=== PATIENT | female | born 1990 | race Caucasian/White ===

== ENCOUNTER 2020-07-23 18:38 | Inpatient (IN) | payer BC ==
[~2020-07-23] VITALS: Ht 175.3 cm; Wt 79.3 kg
[2020-07-23] MEDS: BETAMETHASONE 6 MG/ML, 5ML IM SCH (18:00)
[2020-07-23] MEDS ORDERED: MAGNESIUM SULF. PMX 20GM/500ML 500 ML IV ONE (19:13)
[2020-07-23] MEDS: MAGNESIUM SULF. PMX 20GM/500ML 500 ML IV SCH (19:20)
[2020-07-23] MEDS ORDERED: PLEASE ENTER HEIGHT AND WEIGHT MC SCH (19:30)
[2020-07-23] MEDS ORDERED: LACTATED RINGERS 1,000 ML IV PRN (19:30)
[2020-07-23] MEDS ORDERED: PLEASE ENTER ALLERGIES MC SCH (19:30)
[2020-07-23] MEDS ORDERED: MAGNESIUM SULFATE PMX 2GM/50ML 50 ML IVPB ONE (19:30)
[2020-07-23] MEDS ORDERED: SODIUM CHLORIDE 0.45% 1,000 ML IV PRN (19:30)
[2020-07-23 19:41] LABS: BASOPHILS % (AUTO) 0 % (0-1); EOSINOPHILS % (AUTO) 1 % (1-7); LYMPHOCYTES % (AUTO) 10 % (22-44); MEAN CORPUSCULAR HGB CONC 33.9 g/dL (32.4-35.8); MEAN PLATELET VOLUME 9.7 fL (7.4-10.4); MONOCYTES % (AUTO) 8 % (2-9); NEUTROPHILS % (AUTO) 81 % (42-75); PLATELET COUNT 124 x10^3/uL (130-400); RED BLOOD COUNT 4.42 x10^6/uL (3.82-5.3); RED CELL DISTRIBUTION WIDTH 12.4 % (9.6-15.2)
[2020-07-23 19:43] LABS: MICROSCOPIC AUTO
[2020-07-23 19:45] LABS: MD NO
[2020-07-23 19:46] VITALS: BP 113/61
[2020-07-23 19:52] LABS: ALANINE AMINOTRANSFERASE 14 U/L (12-78); ALBUMIN 2.6 g/dL (3.4-5.0); ANION GAP 8 mmol/L (5-15); CALCIUM 8.6 mg/dL (8.5-10.1); CHLORIDE 110 mmol/L (98-107); CREATININE 0.61 mg/dL (0.55-1.02)
[2020-07-23 19:54] LABS: ALKALINE PHOSPHATASE 152 U/L (45-117); BILIRUBIN,TOTAL 0.2 mg/dL (0.2-1.0); TOTAL PROTEIN 7.2 g/dL (6.4-8.2)
[2020-07-23] MEDS ORDERED: METOCLOPRAMIDE 5 MG/ML, 2ML ONE (20:14)
[2020-07-23] MEDS ORDERED: SODIUM CITRATE/CITRIC ACID 15 ML UDC ONE (20:14)
[2020-07-23] MEDS ORDERED: INDOMETHACIN 50 MG CAPSULE ONE (20:21)
[2020-07-23] MEDS ORDERED: INDOMETHACIN 50 MG CAPSULE PO ONE (20:30)
[2020-07-23] MEDS: AZITHROMYCIN 500 MG in SODIUM CHLORIDE 0.9% 250 ML IV SCH (21:06)
[2020-07-23 22:31] LABS: FERNING TEST FERNING PRESENT (NEGATIVE)
[2020-07-24] MEDS: AMPICILLIN 2 GM in SODIUM CHLORIDE 0.9% 100 ML IV SCH ×5 (00:21→19:30)
[2020-07-24] MEDS ORDERED: MAGNESIUM SULF. PMX 20GM/500ML 500 ML IV ONE ×3 (01:24→16:57)
[2020-07-24] MEDS: MAGNESIUM SULF. PMX 20GM/500ML 500 ML IV SCH ×5 (01:28→17:02)
[2020-07-24] MEDS ORDERED: CALCIUM GLUCONATE 4.6 MEQ/10 ML IV PRN (01:30)
[2020-07-24] MEDS ORDERED: CALCIUM CARBONATE 500 MG TAB.CHEW PO PRN (01:30)
[2020-07-24] MEDS ORDERED: CALCIUM CARBONATE 500 MG TAB.CHEW ONE (01:33)
[2020-07-24] MEDS ORDERED: INDOMETHACIN 50 MG CAPSULE ONE ×3 (07:26→22:52)
[2020-07-24] MEDS: INDOMETHACIN 50 MG CAPSULE PO SCH ×3 (07:28→22:53)
[2020-07-24] MEDS ORDERED: BETAMETHASONE 6 MG/ML, 5ML IM ONE (18:58)
[2020-07-24] MEDS: BETAMETHASONE 6 MG/ML, 5ML IM SCH (19:07)
[2020-07-24] MEDS: AZITHROMYCIN 500 MG in SODIUM CHLORIDE 0.9% 250 ML IV SCH (21:53)
[2020-07-25] MEDS ORDERED: MAGNESIUM SULF. PMX 20GM/500ML 500 ML IV ONE ×2 (01:09→09:05)
[2020-07-25] MEDS: MAGNESIUM SULF. PMX 20GM/500ML 500 ML IV SCH ×5 (01:30→13:00)
[2020-07-25] MEDS: AMPICILLIN 2 GM in SODIUM CHLORIDE 0.9% 100 ML IV SCH ×4 (01:32→19:20)
[2020-07-25 07:47] VITALS: BP 103/59
[2020-07-25] MEDS ORDERED: INDOMETHACIN 50 MG CAPSULE ONE ×3 (07:53→23:35)
[2020-07-25] MEDS: INDOMETHACIN 50 MG CAPSULE PO SCH ×3 (07:56→23:37)
[2020-07-25] MEDS ORDERED: PRENATAL VIT/IRON/FA 1 EACH TABLET PO SCH (09:00)
[2020-07-25] MEDS: AZITHROMYCIN 500 MG in SODIUM CHLORIDE 0.9% 250 ML IV SCH (21:00)
[2020-07-25] MEDS: ASPIRIN 81 MG TABLET EC PO SCH (22:00)
[2020-07-25] MEDS ORDERED: AMOXICILLIN 250 MG CAPSULE ONE (23:35)
[2020-07-26] MEDS ORDERED: AMOXICILLIN 250 MG CAPSULE PO SCH
[2020-07-26] MEDS ORDERED: INDOMETHACIN 50 MG CAPSULE ONE (07:04)
[2020-07-26] MEDS: INDOMETHACIN 50 MG CAPSULE PO SCH (07:05)
[2020-07-26] MEDS ORDERED: AMOXICILLIN 250 MG CAPSULE ONE ×2 (07:36→16:17)
[2020-07-26] MEDS: AMOXICILLIN 250 MG CAPSULE PO SCH ×2 (07:48→16:19)
[2020-07-26] MEDS ORDERED: DOCUSATE 100 MG CAPSULE ONE (08:33)
[2020-07-26] MEDS: DOCUSATE 100 MG CAPSULE PO PRN (08:34)
[2020-07-26] MEDS ORDERED: NEWBORN KIT ONE (11:18)
[2020-07-26] MEDS ORDERED: FAMOTIDINE 20 MG TABLET ONE (14:33)
[2020-07-26] MEDS: FAMOTIDINE 20 MG TABLET PO SCH (14:36)
[2020-07-26] MEDS: ASPIRIN 81 MG TABLET EC PO SCH (22:00)
[2020-07-26] MEDS ORDERED: TERBUTALINE 1 MG/ML, 1ML ONE (22:19)
[2020-07-26] MEDS ORDERED: TERBUTALINE 1 MG/ML, 1ML SQ ONE (23:00)
[2020-07-26] MEDS ORDERED: CEFAZOLIN 2,000 MG in SODIUM CHLORIDE 0.9% 50 ML IV ONE (23:00)
[2020-07-27] MEDS ORDERED: AMOXICILLIN 250 MG CAPSULE ONE (00:12)
[2020-07-27] MEDS: AMOXICILLIN 250 MG CAPSULE PO SCH ×4 (00:17→23:47)
[2020-07-27] MEDS: DOCUSATE 100 MG CAPSULE PO PRN (08:31)
[2020-07-27] MEDS: FAMOTIDINE 20 MG TABLET PO SCH ×2 (08:32→15:54)
[2020-07-27 08:55] VITALS: BP 105/55
[2020-07-27 20:00] VITALS: BP 106/57
[2020-07-27] MEDS: SODIUM CHLORIDE FLUSH 3ML SYRINGE IVF SCH ×2 (21:00→21:49)
[2020-07-27] MEDS ORDERED: DIPHENHYDRAMINE 25 MG CAPSULE ONE (21:41)
[2020-07-27] MEDS: ASPIRIN 81 MG TABLET EC PO SCH (21:49)
[2020-07-28 08:00] LABS: ALBUMIN 2.2 g/dL (3.4-5.0); ANION GAP 6 mmol/L (5-15); CHLORIDE 111 mmol/L (98-107)
[2020-07-28 08:04] LABS: ALANINE AMINOTRANSFERASE 150 U/L (12-78); ALKALINE PHOSPHATASE 161 U/L (45-117); BILIRUBIN,TOTAL 0.3 mg/dL (0.2-1.0); CREATININE 0.59 mg/dL (0.55-1.02); TOTAL PROTEIN 6.2 g/dL (6.4-8.2)
[2020-07-28] MEDS: AMOXICILLIN 250 MG CAPSULE PO SCH ×2 (08:21→16:06)
[2020-07-28] MEDS ORDERED: CETIRIZINE 10 MG TABLET PO SCH (09:00)
[2020-07-28] MEDS ORDERED: FAMOTIDINE 20 MG/2 ML IVPush SCH (09:00)
[2020-07-28] MEDS ORDERED: FAMOTIDINE 20 MG TABLET HOMEMEDPO SCH (09:00)
[2020-07-28] MEDS: PRENATAL VIT/IRON/FA 1 EACH TABLET HOMEMEDPO SCH (09:33)
[2020-07-28] MEDS: SODIUM CHLORIDE FLUSH 3ML SYRINGE IVF SCH ×2 (09:40→21:00)
[2020-07-28 09:47] VITALS: BP 107/68
[2020-07-28] MEDS: DOCUSATE 100 MG CAPSULE PO PRN (12:08)
[2020-07-28 20:00] VITALS: BP 112/65
[2020-07-28] MEDS: ASPIRIN 81 MG TABLET EC HOMEMEDPO SCH (21:00)
[2020-07-28] MEDS: FAMOTIDINE 20 MG TABLET PO SCH (21:00)
[2020-07-29] MEDS ORDERED: ZOLPIDEM 5MG TABLET PO PRN (02:00)
[2020-07-29] MEDS: AMOXICILLIN 250 MG CAPSULE PO SCH ×4 (08:07→23:23)
[2020-07-29] MEDS: FAMOTIDINE 20 MG TABLET PO SCH ×2 (09:00→21:00)
[2020-07-29] MEDS: PRENATAL VIT/IRON/FA 1 EACH TABLET HOMEMEDPO SCH (09:00)
[2020-07-29] MEDS: DOCUSATE 100 MG CAPSULE PO PRN (12:00)
[2020-07-29] MEDS: SODIUM CHLORIDE FLUSH 3ML SYRINGE IVF SCH ×2 (12:00→21:33)
[2020-07-29] MEDS: ASPIRIN 81 MG TABLET EC HOMEMEDPO SCH (21:00)
[2020-07-30] MEDS: AMOXICILLIN 250 MG CAPSULE PO SCH ×3 (08:00→23:34)
[2020-07-30] MEDS: PRENATAL VIT/IRON/FA 1 EACH TABLET HOMEMEDPO SCH (09:00)
[2020-07-30] MEDS: SODIUM CHLORIDE FLUSH 3ML SYRINGE IVF SCH ×2 (09:46→20:53)
[2020-07-30] MEDS: DOCUSATE 100 MG CAPSULE PO PRN (09:46)
[2020-07-30] MEDS: FAMOTIDINE 20 MG TABLET PO SCH ×2 (09:46→20:53)
[2020-07-30] MEDS: URSODIOL 300 MG CAPSULE PO SCH ×2 (16:45→20:53)
[2020-07-30 20:24] VITALS: BP 113/63
[2020-07-30] MEDS: ASPIRIN 81 MG TABLET EC HOMEMEDPO SCH (20:53)
[2020-07-30] MEDS ORDERED: URSODIOL 300 MG CAPSULE PO SCH (21:00)
[2020-07-31 05:30] LABS: ALANINE AMINOTRANSFERASE 198 U/L (12-78); ALBUMIN 2.3 g/dL (3.4-5.0); ANION GAP 8 mmol/L (5-15); CALCIUM 9.2 mg/dL (8.5-10.1); CHLORIDE 107 mmol/L (98-107); CREATININE 0.64 mg/dL (0.55-1.02)
[2020-07-31 05:33] LABS: ALKALINE PHOSPHATASE 185 U/L (45-117); BILIRUBIN,TOTAL 0.3 mg/dL (0.2-1.0); TOTAL PROTEIN 6.8 g/dL (6.4-8.2)
[2020-07-31] MEDS: AMOXICILLIN 250 MG CAPSULE PO SCH ×2 (08:04→15:51)
[2020-07-31] MEDS: FAMOTIDINE 20 MG TABLET PO SCH ×2 (08:04→20:56)
[2020-07-31] MEDS: URSODIOL 300 MG CAPSULE PO SCH ×3 (08:50→20:50)
[2020-07-31] MEDS: SODIUM CHLORIDE FLUSH 3ML SYRINGE IVF SCH ×2 (08:50→20:51)
[2020-07-31 09:07] VITALS: BP 104/57
[2020-07-31] MEDS: ASPIRIN 81 MG TABLET EC HOMEMEDPO SCH (21:00)
[2020-07-31 22:13] VITALS: BP 113/68
[2020-08-01] MEDS: AMOXICILLIN 250 MG CAPSULE PO SCH ×4 (00:07→16:00)
[2020-08-01] MEDS: URSODIOL 300 MG CAPSULE PO SCH ×3 (05:55→21:06)
[2020-08-01] MEDS: SODIUM CHLORIDE FLUSH 3ML SYRINGE IVF SCH ×2 (05:56→21:06)
[2020-08-01] MEDS: PRENATAL VIT/IRON/FA 1 EACH TABLET HOMEMEDPO SCH (08:53)
[2020-08-01] MEDS: FAMOTIDINE 20 MG TABLET PO SCH ×2 (08:53→21:06)
[2020-08-01 19:14] LABS: BASOPHILS % (AUTO) 0 % (0-1); EOSINOPHILS % (AUTO) 1 % (1-7); LYMPHOCYTES % (AUTO) 15 % (22-44); MEAN CORPUSCULAR HEMOGLOBIN 29.5 pg (27.0-34.8); MEAN CORPUSCULAR HGB CONC 33.6 g/dL (32.4-35.8); MEAN PLATELET VOLUME 9.9 fL (7.4-10.4); MONOCYTES % (AUTO) 10 % (2-9); NEUTROPHILS % (AUTO) 74 % (42-75); PLATELET COUNT 151 x10^3/uL (130-400); RED BLOOD COUNT 4.03 x10^6/uL (3.82-5.3); RED CELL DISTRIBUTION WIDTH 12.4 % (9.6-15.2)
[2020-08-01 19:15] LABS: MD NO
[2020-08-01 20:17] VITALS: BP 114/63
[2020-08-01] MEDS: ASPIRIN 81 MG TABLET EC HOMEMEDPO SCH (21:00)
[2020-08-02] MEDS: AMOXICILLIN 250 MG CAPSULE PO SCH ×3 (00:03→16:09)
[2020-08-02] MEDS: URSODIOL 300 MG CAPSULE PO SCH ×3 (06:16→21:20)
[2020-08-02] MEDS: SODIUM CHLORIDE FLUSH 3ML SYRINGE IVF SCH ×3 (06:17→21:25)
[2020-08-02] MEDS: FAMOTIDINE 20 MG TABLET PO SCH ×2 (08:18→21:23)
[2020-08-02] MEDS: PRENATAL VIT/IRON/FA 1 EACH TABLET HOMEMEDPO SCH (09:00)
[2020-08-02] MEDS: ASPIRIN 81 MG TABLET EC HOMEMEDPO SCH (21:00)
[2020-08-02] MEDS: DOCUSATE 100 MG CAPSULE PO PRN (22:09)
[2020-08-03] MEDS ORDERED: ASPIRIN 81 MG TABLET CHEW ONE (08:56)
[2020-08-03] MEDS: PRENATAL VIT/IRON/FA 1 EACH TABLET HOMEMEDPO SCH (09:00)
[2020-08-03] MEDS: DOCUSATE 100 MG CAPSULE PO PRN (09:01)
[2020-08-03] MEDS: URSODIOL 300 MG CAPSULE PO SCH ×3 (09:02→21:33)
[2020-08-03] MEDS: FAMOTIDINE 20 MG TABLET PO SCH ×2 (09:06→21:33)
[2020-08-03 15:31] VITALS: BP 109/65
[2020-08-03 19:30] VITALS: BP 124/72
[2020-08-03] MEDS: ASPIRIN 81 MG TABLET EC HOMEMEDPO SCH (21:00)
[2020-08-03] MEDS: SODIUM CHLORIDE FLUSH 3ML SYRINGE IVF SCH (21:33)
[2020-08-04 07:33] VITALS: BP 92/54
[2020-08-04 08:23] LABS: BASOPHILS % (AUTO) 1 % (0-1); EOSINOPHILS % (AUTO) 1 % (1-7); LYMPHOCYTES % (AUTO) 15 % (22-44); MEAN CORPUSCULAR HEMOGLOBIN 29.3 pg (27.0-34.8); MEAN CORPUSCULAR HGB CONC 33.2 g/dL (32.4-35.8); MONOCYTES % (AUTO) 11 % (2-9); NEUTROPHILS % (AUTO) 73 % (42-75); PLATELET COUNT 134 x10^3/uL (130-400); RED CELL DISTRIBUTION WIDTH 12.5 % (9.6-15.2)
[2020-08-04] MEDS: FAMOTIDINE 20 MG TABLET PO SCH ×2 (08:45→21:15)
[2020-08-04] MEDS: DOCUSATE 100 MG CAPSULE PO PRN ×2 (08:45→21:15)
[2020-08-04] MEDS: SODIUM CHLORIDE FLUSH 3ML SYRINGE IVF SCH ×2 (09:00→21:15)
[2020-08-04] MEDS: PRENATAL VIT/IRON/FA 1 EACH TABLET HOMEMEDPO SCH (09:00)
[2020-08-04 09:08] LABS: MD SCAN
[2020-08-04] MEDS: URSODIOL 300 MG CAPSULE PO SCH ×3 (09:31→21:15)
[2020-08-04 20:00] VITALS: BP 110/72
[2020-08-04] MEDS: ASPIRIN 81 MG TABLET EC HOMEMEDPO SCH (21:00)
[2020-08-05] MEDS ORDERED: GLYCERIN ADULT SUPP PR PRN (07:00)
[2020-08-05] MEDS: PRENATAL VIT/IRON/FA 1 EACH TABLET HOMEMEDPO SCH (08:02)
[2020-08-05] MEDS: URSODIOL 300 MG CAPSULE PO SCH ×3 (08:02→21:45)
[2020-08-05] MEDS: SODIUM CHLORIDE FLUSH 3ML SYRINGE IVF SCH ×2 (08:02→21:00)
[2020-08-05] MEDS: FAMOTIDINE 20 MG TABLET PO SCH ×2 (08:02→21:45)
[2020-08-05] MEDS: BISACODYL 10 MG SUPP PR PRN (16:30)
[2020-08-05 19:30] VITALS: BP 127/65
[2020-08-05] MEDS: ASPIRIN 81 MG TABLET EC HOMEMEDPO SCH (21:00)
[2020-08-05] MEDS: SIMETHICONE 80 MG CHEW TAB PO PRN (21:45)
[2020-08-05] MEDS: DOCUSATE 100 MG CAPSULE PO PRN (21:45)
[2020-08-06] MEDS: FAMOTIDINE 20 MG TABLET PO SCH ×2 (08:58→20:55)
[2020-08-06] MEDS: DOCUSATE 100 MG CAPSULE PO PRN ×2 (08:58→20:55)
[2020-08-06] MEDS: URSODIOL 300 MG CAPSULE PO SCH ×3 (08:58→20:55)
[2020-08-06] MEDS: SODIUM CHLORIDE FLUSH 3ML SYRINGE IVF SCH (09:00)
[2020-08-06] MEDS: ASPIRIN 81 MG TABLET EC HOMEMEDPO SCH (21:00)
[2020-08-07 06:22] LABS: BASOPHILS % (AUTO) 1 % (0-1); EOSINOPHILS % (AUTO) 2 % (1-7); LYMPHOCYTES % (AUTO) 17 % (22-44); MEAN CORPUSCULAR HEMOGLOBIN 29.7 pg (27.0-34.8); MEAN PLATELET VOLUME 10.6 fL (7.4-10.4); MONOCYTES % (AUTO) 10 % (2-9); NEUTROPHILS % (AUTO) 71 % (42-75); PLATELET COUNT 108 x10^3/uL (130-400); RED BLOOD COUNT 3.83 x10^6/uL (3.82-5.3); RED CELL DISTRIBUTION WIDTH 12.4 % (9.6-15.2)
[2020-08-07 06:23] LABS: MD NO
[2020-08-07] MEDS: PRENATAL VIT/IRON/FA 1 EACH TABLET HOMEMEDPO SCH ×2 (09:00→09:57)
[2020-08-07] MEDS: FAMOTIDINE 20 MG TABLET PO SCH ×2 (09:00→21:00)
[2020-08-07] MEDS: URSODIOL 300 MG CAPSULE PO SCH (09:00)
[2020-08-07] MEDS ORDERED: MAGNESIUM SULF. PMX 20GM/500ML 500 ML IV ONE (09:29)
[2020-08-07] MEDS ORDERED: METOCLOPRAMIDE 5 MG/ML, 2ML ONE (09:31)
[2020-08-07] MEDS ORDERED: SODIUM CITRATE/CITRIC ACID 15 ML UDC ONE (09:32)
[2020-08-07] MEDS ORDERED: LACTATED RINGERS 1,000 ML IVBOLUS ONE (10:00)
[2020-08-07] MEDS ORDERED: AZITHROMYCIN 500 MG in SODIUM CHLORIDE 0.9% 250 ML IV ONE (10:00)
[2020-08-07] MEDS ORDERED: METOCLOPRAMIDE 5 MG/ML, 2ML IV ONE (10:00)
[2020-08-07] MEDS ORDERED: SODIUM CITRATE/CITRIC ACID 30 ML UDC PO ONE (10:00)
[2020-08-07 10:04] LABS: ALBUMIN 2.4 g/dL (3.4-5.0); ANION GAP 9 mmol/L (5-15); CALCIUM 8.9 mg/dL (8.5-10.1); CHLORIDE 110 mmol/L (98-107)
[2020-08-07 10:08] LABS: ALANINE AMINOTRANSFERASE 148 U/L (12-78); ALKALINE PHOSPHATASE 208 U/L (45-117); BILIRUBIN,TOTAL 0.3 mg/dL (0.2-1.0); CREATININE 0.57 mg/dL (0.55-1.02)
[2020-08-07] MEDS ORDERED: MAGNESIUM SULF. PMX 20GM/500ML 500 ML IV SCH (10:30)
[2020-08-07] MEDS ORDERED: MAGNESIUM SULFATE PMX 4GM/100M 100 ML IVPB ONE (10:30)
[2020-08-07] MEDS ORDERED: morphine SULFATE/PF 0.5 MG/ML, 10ML ONE (10:56)
[2020-08-07] MEDS ORDERED: OXYTOCIN 30U/ 0.9% NaCL 500ML 500 ML ONE (10:56)
[2020-08-07] MEDS ORDERED: OXYTOCIN 10 UNITS/ML, 1ML ONE (10:58)
[2020-08-07] MEDS ORDERED: SODIUM CHLORIDE 0.9% PF 10ML ONE ×2 (10:58→11:07)
[2020-08-07] MEDS ORDERED: CEFAZOLIN 1,000 MG ONE (10:58)
[2020-08-07] MEDS ORDERED: KETOROLAC 30 MG/1 ML ONE (10:58)
[2020-08-07] MEDS ORDERED: ONDANSETRON 2MG/ML, 2ML ONE (10:58)
[2020-08-07] MEDS ORDERED: DEXAMETHASONE 4 MG/ML, 1ML ONE (10:58)
[2020-08-07] MEDS ORDERED: PHENYLEPHRINE 10 MG/ML ONE (11:07)
[2020-08-07] MEDS: OXYTOCIN 30U/ 0.9% NaCL 500ML 500 ML IV SCH ×2 (12:22→22:30)
[2020-08-07] MEDS: LACTATED RINGERS 1,000 ML IV SCH ×4 (12:23→22:30)
[2020-08-07] MEDS ORDERED: METOCLOPRAMIDE 5 MG/ML, 2ML IV PRN (12:30)
[2020-08-07] MEDS ORDERED: ONDANSETRON 2MG/ML, 2ML IV PRN ×2 (12:30→14:30)
[2020-08-07] MEDS ORDERED: MEASLES,MUMPS&RUBELLA VACC/PF 0.5 ML SQ-VACC PRN (12:30)
[2020-08-07] MEDS ORDERED: IBUPROFEN 600 MG TABLET PO PRN (12:30)
[2020-08-07] MEDS ORDERED: ACETAMINOPHEN 325 MG TABLET PO PRN ×2 (12:30)
[2020-08-07] MEDS ORDERED: KETOROLAC 30 MG/1 ML IV PRN (12:30)
[2020-08-07] MEDS ORDERED: OXYcodone IR 5MG TABLET PO PRN ×2 (12:30)
[2020-08-07] MEDS ORDERED: RHOGAM FROM BLOOD BANK 1 NOTE EA IM/IV ONE (12:30)
[2020-08-07] MEDS ORDERED: MISOPROSTOL 200 MCG TABLET PR PRN (12:30)
[2020-08-07] MEDS ORDERED: morphine SULFATE 10 MG/ML, 1ML IVPush PRN ×2 (12:30)
[2020-08-07] MEDS ORDERED: CALCIUM CARBONATE 500 MG TAB.CHEW PO PRN (12:30)
[2020-08-07] MEDS ORDERED: SIMETHICONE 80 MG CHEW TAB PO PRN (12:30)
[2020-08-07] MEDS ORDERED: NO SEDATIVES, TRANQUILIZERS OR ANTIEMETICS XX SCH (14:00)
[2020-08-07] MEDS ORDERED: DIPHENHYDRAMINE 50 MG/ML, 1ML IV PRN (14:00)
[2020-08-07] MEDS ORDERED: MIDAZOLAM 1 MG/ML, 5ML IV PRN (14:30)
[2020-08-07] MEDS ORDERED: MORPHINE SULFATE 4 MG/ML, 1ML IVPush PRN (14:30)
[2020-08-07] MEDS ORDERED: FENTANYL PF 100 MCG/2ML IVPush PRN (14:30)
[2020-08-07] MEDS ORDERED: OXYcodone 5 MG/5 ML ORAL.SOL UDC PO PRN (14:30)
[2020-08-07] MEDS ORDERED: METOCLOPRAMIDE 5 MG/ML, 2ML IVPush PRN (14:30)
[2020-08-07] MEDS ORDERED: PROMETHAZINE 25 MG/ML, 1ML IV PRN (14:30)
[2020-08-07] MEDS ORDERED: HYDROmorphone 2 MG/ML, 1ML IV PRN (14:30)
[2020-08-07] MEDS ORDERED: MEPERIDINE/PF 25MG/0.5ML IV PRN (14:30)
[2020-08-07 16:25] VITALS: BP 116/79
[2020-08-07] MEDS: OXYcodone/APAP 5/325MG TABLET PO PRN (18:48)
[2020-08-07 18:52] LABS: BASOPHILS % (AUTO) 0 % (0-1); EOSINOPHILS % (AUTO) 0 % (1-7); LYMPHOCYTES % (AUTO) 7 % (22-44); MEAN CORPUSCULAR HEMOGLOBIN 29.5 pg (27.0-34.8); MEAN CORPUSCULAR HGB CONC 33.6 g/dL (32.4-35.8); MEAN PLATELET VOLUME 10.7 fL (7.4-10.4); MONOCYTES % (AUTO) 6 % (2-9); NEUTROPHILS % (AUTO) 87 % (42-75); PLATELET COUNT 127 x10^3/uL (130-400); RED CELL DISTRIBUTION WIDTH 12.5 % (9.6-15.2)
[2020-08-07 18:53] LABS: MD NO
[2020-08-07 19:30] VITALS: BP 118/70
[2020-08-07] MEDS: DOCUSATE 100 MG CAPSULE PO PRN (19:39)
[2020-08-07] MEDS: KETOROLAC 30 MG/1 ML IVPush SCH (19:40)
[2020-08-08 00:45] VITALS: BP 116/71
[2020-08-08] MEDS: KETOROLAC 30 MG/1 ML IVPush SCH ×4 (01:29→19:20)
[2020-08-08] MEDS: OXYcodone/APAP 5/325MG TABLET PO PRN ×5 (03:43→20:00)
[2020-08-08] MEDS: SIMETHICONE 80 MG CHEW TAB PO PRN (03:49)
[2020-08-08 04:00] VITALS: BP 121/74
[2020-08-08] MEDS: LACTATED RINGERS 1,000 ML IV SCH (04:30)
[2020-08-08] MEDS: DOCUSATE 100 MG CAPSULE PO PRN ×2 (07:32→19:22)
[2020-08-08] MEDS: PRENATAL VIT/IRON/FA 1 EACH TABLET PO SCH (07:32)
[2020-08-08 08:00] VITALS: BP 111/73
[2020-08-08] MEDS: FAMOTIDINE 20 MG TABLET PO SCH ×2 (09:12→21:00)
[2020-08-08 12:00] VITALS: BP 99/60
[2020-08-08 16:00] VITALS: BP 100/68
[2020-08-08 19:15] VITALS: BP 113/76
[2020-08-09 00:07] VITALS: BP 110/70
[2020-08-09] MEDS: SIMETHICONE 80 MG CHEW TAB PO PRN ×3 (00:12→19:32)
[2020-08-09] MEDS: KETOROLAC 30 MG/1 ML IVPush SCH ×3 (01:19→12:55)
[2020-08-09] MEDS: OXYcodone/APAP 5/325MG TABLET PO PRN ×6 (01:55→21:58)
[2020-08-09 03:30] VITALS: BP 112/74
[2020-08-09] MEDS: DOCUSATE 100 MG CAPSULE PO PRN ×2 (07:25→19:32)
[2020-08-09] MEDS: FAMOTIDINE 20 MG TABLET PO SCH ×2 (07:29→20:50)
[2020-08-09 07:30] VITALS: BP 115/75
[2020-08-09] MEDS: PRENATAL VIT/IRON/FA 1 EACH TABLET PO SCH (07:30)
[2020-08-09 19:20] VITALS: BP 114/73
[2020-08-09] MEDS: IBUPROFEN 600 MG TABLET PO PRN (19:32)
[2020-08-09] MEDS ORDERED: OXYcodone/APAP 5/325MG TABLET PO PRN (21:50)
[2020-08-10] MEDS: IBUPROFEN 600 MG TABLET PO PRN ×4 (01:58→20:19)
[2020-08-10] MEDS: OXYcodone/APAP 5/325MG TABLET PO PRN ×5 (01:59→19:53)
[2020-08-10 07:57] VITALS: BP 114/67
[2020-08-10] MEDS: DOCUSATE 100 MG CAPSULE PO PRN ×2 (08:02→20:19)
[2020-08-10] MEDS: BISACODYL 10 MG SUPP PR PRN (08:03)
[2020-08-10] MEDS: FAMOTIDINE 20 MG TABLET PO SCH ×2 (09:00→21:00)
[2020-08-10] MEDS: PRENATAL VIT/IRON/FA 1 EACH TABLET PO SCH (09:00)
[2020-08-10 20:10] VITALS: BP 114/74
[2020-08-11] MEDS: OXYcodone/APAP 5/325MG TABLET PO PRN ×3 (00:19→08:45)
[2020-08-11] MEDS: IBUPROFEN 600 MG TABLET PO PRN (04:29)
[2020-08-11 07:00] VITALS: BP 124/74
[2020-08-11] MEDS: FAMOTIDINE 20 MG TABLET PO SCH (08:45)
[2020-08-11] MEDS: DOCUSATE 100 MG CAPSULE PO PRN (08:45)
[2020-08-11] MEDS: PRENATAL VIT/IRON/FA 1 EACH TABLET PO SCH (08:46)
[2020-08-11] MEDS ORDERED: IBUP-1222 PO (09:26)
[2020-08-11] MEDS ORDERED: OXYC1TAB14 PO (09:26)
== END 2020-08-11 11:40 | disposition home or self-care (01) | DRG 786 ==
LOC: EDIP 19:11 → LDIP 19:15 → 2NW 08-07 14:29
PROVIDERS: ADMIT Obstetrics & Gynecology; ATTEND Obstetrics & Gynecology
PROC: 10903ZC Drainage of Amniotic Fluid, Therapeutic from Products of Conception, Percutaneous Approach (ICD-10-PCS; 2020-07-26)
PROC: 10903ZC Drainage of Amniotic Fluid, Therapeutic from Products of Conception, Percutaneous Approach (ICD-10-PCS; 2020-07-31)
PROC: 10903ZC Drainage of Amniotic Fluid, Therapeutic from Products of Conception, Percutaneous Approach (ICD-10-PCS; 2020-08-04)
PROC: 10D00Z1 Extraction of Products of Conception, Low, Open Approach (ICD-10-PCS; principal; 2020-08-07)
DX: O26.62 Liver and biliary tract disorders in childbirth (principal); O60.12X0 Preterm labor second trimester with preterm delivery second trimester, not applicable or unspecified; K83.1 Obstruction of bile duct; O63.9 Long labor, unspecified; Z20.822 Contact with and (suspected) exposure to COVID-19; O40.2XX1 Polyhydramnios, second trimester, fetus 1; O76 Abnormality in fetal heart rate and rhythm complicating labor and delivery; O42.912 Preterm premature rupture of membranes, unspecified as to length of time between rupture and onset of labor, second trimester; O30.032 Twin pregnancy, monochorionic/diamniotic, second trimester; Z3A.26 26 weeks gestation of pregnancy; Z37.2 Twins, both liveborn
CPT/HCPCS: 36415; 76815; 76946; 80053; 81001; 82239; 83735; 84112; 85025; 85384; 86592; 86850; 86900; 87635; 88307; 89060; 93005; G0378; J0290; J0456; J0690; J0702; J1100; J1885; J2274; J2405; J1200; J2370; J2590; J2765; J3105; J3475; J7050; J7120; Q0114